=== PATIENT | male | born 1945 | race Asian ===

== ENCOUNTER 2018-11-03 00:26 | Inpatient (IN) | payer OTHER ==
[~2018-11-03] VITALS: Ht 157.5 cm; Wt 68.5 kg
[2018-11-03] MEDS ORDERED: ACETAMINOPHEN 325 MG TAB PO ONE (01:00)
[2018-11-03 02:36] LABS: Lactic Acid w/Reflex 2.2 mmol/L (0.4-2.0)
[2018-11-03 03:28] LABS: Basophils # (auto) 0.1 uL; Basophils % (auto) 0.5 % (0.0-2.0); Eosinophils # (auto) 0.2 uL; Eosinophils % (auto) 1.5 % (0.0-7.0); Hemoglobin 14.7 g/dL (13.5-17.5); Mean Corpuscular Hemoglobin 31.8 pg (28.0-32.0); Mean Corpuscular Hgb Conc. 33.5 g/dL (32.0-36.0); Mean Corpuscular Volume 94.9 fL (80.0-100.0); Monocytes # (auto) 0.9 uL; Monocytes % (auto) 6.5 % (0.0-12.0); Neutrophils # (auto) 10.1 uL; Neutrophils % (auto) 76.5 % (37.0-80.0); Platelet Count (auto) 296 10^3/uL (140-450); Red Blood Cells 4.64 10^6/uL (4.5-5.90); Red Cell Distribution Width 13.6 % (11.8-14.3); White Blood Cell 13.2 10^3/uL (4.4-10.8)
[2018-11-03] MEDS ORDERED: ALBUTEROL SULF 2.5 MG/0.5ML(0.5%) NEB SOLN NEB ONE (03:45)
[2018-11-03] MEDS ORDERED: IPRATROPIUM BROM 0.5 MG/2.5ML INH SOL NEB ONE (03:45)
[2018-11-03] MEDS ORDERED: SODIUM CHLORIDE 0.9% 1,000 ML IV ONE (03:45)
[2018-11-03 04:00] LABS: Albumin 3.2 g/dL (3.4-5.0); Anion Gap 14 (5-15); BUN/Creatinine Ratio 12.2; Blood Urea Nitrogen 14 mg/dL (7-18); Calcium 8.4 mg/dL (8.5-10.1); Carbon Dioxide 21 mmol/L (21-32); Chloride 105 mmol/L (98-107); GFR African American 80 mL/min; GFR Non-African American 66 mL/min; Glucose 110 mg/dL (74-106); Magnesium 2.2 mg/dL (1.6-2.6); Potassium 3.8 mmol/L (3.5-5.1); Sodium 140 mmol/L (136-145)
[2018-11-03 04:06] LABS: Alanine Aminotransferase 25 U/L (16-61); Alkaline Phosphatase 76 U/L (45-117); Aspartate Aminotransferase 21 U/L (15-37); Bilirubin, Total 0.3 mg/dL (0.2-1.0)
[2018-11-03] MEDS ORDERED: VANCOMYCIN PER PHARMACY 1,000 MG IV SCH (04:45)
[2018-11-03] MEDS ORDERED: SODIUM CHLORIDE 0.9% 2,000 ML IV ONE (04:45)
[2018-11-03 04:46] LABS: Urine Bacteria MANY /hpf (None Seen); Urine Blood TRACE /uL (Negative); Urine Mucus FEW (None Seen); Urine WBC 69 /hpf (0 - 3)
[2018-11-03] MEDS ORDERED: ONDANSETRON HCL 4 MG/2 ML VIAL IV PRN (06:00)
[2018-11-03] MEDS ORDERED: PIPERACILLIN-TAZOB 3.375GM 100 ML IV SCH (06:00)
[2018-11-03] MEDS ORDERED: ALBUTEROL SULF 2.5 MG/0.5ML(0.5%) NEB SOLN NEB PRN (06:00)
[2018-11-03] MEDS ORDERED: MORPHINE SULFATE 10 MG/ML INJ 1ML SDV IV PRN (06:00)
[2018-11-03] MEDS ORDERED: TEMAZEPAM 15 MG CAP PO PRN (06:00)
[2018-11-03] MEDS ORDERED: NITROGLYCERIN 0.4 MG SL TAB SL PRN (06:00)
[2018-11-03] MEDS: SODIUM CHLORIDE 0.9% 1,000 ML IV SCH ×2 (06:00→19:20)
[2018-11-03 06:42] LABS: Lactic Acid w/Reflex 3.8 mmol/L (0.4-2.0)
[2018-11-03 07:23] VITALS: BP 155/86
[2018-11-03] MEDS: ACETAMINOPHEN 325 MG TAB PO PRN ×2 (07:40→19:14)
[2018-11-03] MEDS ORDERED: SODIUM CHLORIDE 0.9% 500 ML IV ONE (07:45)
[2018-11-03] MEDS ORDERED: VANCOMYCIN PER PHARMACY 0 MG IV SCH (07:45)
[2018-11-03] MEDS ORDERED: VANCOMYCIN 1GM/250ML 250 ML IV SCH ×2 (10:00)
[2018-11-03] MEDS ORDERED: LEVOFLOXACIN 500MG 100 ML IV SCH (10:00)
[2018-11-03] MEDS: FAMOTIDINE 20 MG TAB PO SCH ×2 (10:17→21:24)
[2018-11-03] MEDS: ENOXAPARIN SOD 40 MG/0.4 ML SYRINGE SC SCH (10:17)
[2018-11-03] MEDS: METOPROLOL SUCCINATE XL 50 MG TAB PO SCH (10:17)
[2018-11-03 13:00] VITALS: BP 128/79
[2018-11-03] MEDS: PIPERACILLIN-TAZOB 3.375GM 100 ML IV SCH ×3 (13:12→23:56)
[2018-11-03 17:52] VITALS: BP 137/77
--- NOTE | 2018-11-03 19:10 | NUR ---
PRN MED NEB ASSESSMENT. PT DENIES SOB. NO DISTRESS NOTED AT THIS TIME. RA POX 93% HR 82 RR 18 . TX NOT GIVEN.
[2018-11-03 20:00] VITALS: BP 128/63
--- NOTE | 2018-11-03 20:00 | NUR ---
OPENING NOTE PATIENT WAS SLEEPING IN BED, W/ AT BEDSIDE. HE WOKE UP AND IS ALERT AND ORIENTED X 4. NO S/S OF DISTRESS. CALL LIGHT IS IN REACH AND SIDE RAILS UP X 2.
[2018-11-03] MEDS: ATORVASTATIN 20 MG TAB PO SCH (21:24)
[2018-11-03 22:00] VITALS: BP 128/63
[2018-11-04 05:00] VITALS: BP 140/88
[2018-11-04] MEDS: PIPERACILLIN-TAZOB 3.375GM 100 ML IV SCH (05:58)
[2018-11-04 06:14] LABS: Basophils # (auto) 0.1 uL; Basophils % (auto) 0.8 % (0.0-2.0); Eosinophils # (auto) 0.1 uL; Eosinophils % (auto) 0.8 % (0.0-7.0); Hemoglobin 13.8 g/dL (13.5-17.5); Lymphocytes # (auto) 1.6 uL; Lymphocytes % (auto) 12.7 % (10.0-50.0); Mean Corpuscular Hemoglobin 31.5 pg (28.0-32.0); Mean Corpuscular Hgb Conc. 33.6 g/dL (32.0-36.0); Mean Corpuscular Volume 93.9 fL (80.0-100.0); Monocytes # (auto) 1.1 uL; Monocytes % (auto) 8.5 % (0.0-12.0); Neutrophils # (auto) 9.8 uL; Neutrophils % (auto) 77.2 % (37.0-80.0); Nucleated Red Blood Cells % 0.1 %; Platelet Count (auto) 264 10^3/uL (140-450); Red Blood Cells 4.37 10^6/uL (4.5-5.90); Red Cell Distribution Width 13.6 % (11.8-14.3); White Blood Cell 12.7 10^3/uL (4.4-10.8)
[2018-11-04] MEDS: ACETAMINOPHEN 325 MG TAB PO PRN ×3 (06:17→18:56)
[2018-11-04 06:35] LABS: Potassium 3.3 mmol/L (3.5-5.1)
[2018-11-04 06:43] LABS: Albumin 2.7 g/dL (3.4-5.0); BUN/Creatinine Ratio 9.2; Bilirubin, Total 0.5 mg/dL (0.2-1.0); Calcium 7.7 mg/dL (8.5-10.1)
[2018-11-04 09:00] VITALS: BP 125/75
[2018-11-04] MEDS ORDERED: POTASSIUM CHL 20 Meq TABLET PO ONE (09:45)
[2018-11-04] MEDS: METOPROLOL SUCCINATE XL 50 MG TAB PO SCH (10:00)
[2018-11-04] MEDS: FAMOTIDINE 20 MG TAB PO SCH ×2 (10:00→23:23)
[2018-11-04] MEDS: SODIUM CHLORIDE 0.9% 1,000 ML IV SCH ×2 (10:05→23:22)
[2018-11-04] MEDS ORDERED: IOHEXOL 300 MG/ML 100ML BOTTLE IJ ONE (10:15)
[2018-11-04] MEDS: ENOXAPARIN SOD 40 MG/0.4 ML SYRINGE SC SCH (11:44)
[2018-11-04] MEDS: cefTRIAXone 1GM/50ML D5W 50 ML IV SCH (11:44)
[2018-11-04 13:00] VITALS: BP 134/81
[2018-11-04 17:54] VITALS: BP 123/79
--- NOTE | 2018-11-04 20:15 | NUR ---
RT NOTE: PT ASSESSED BY RT @ THIS TIME. PRN MED NEB TX NOT INDICATED. SP02 94% ON ROOM AIR, HR 102, CLEAR/DIMINISHED BS. NO SOB OR DISTRESS NOTED.
[2018-11-04 22:00] VITALS: BP 141/81
[2018-11-04] MEDS: ATORVASTATIN 20 MG TAB PO SCH (23:23)
[2018-11-05] MEDS: HYDROcodone-ACET 5/325MG TAB PO PRN ×2 (03:29→08:54)
--- NOTE | 2018-11-05 03:29 | NUR ---
IV positional and dc'd with cath tip intact. New Iv started, 22g right FA on first attempt and pt nishant well.
[2018-11-05 05:00] VITALS: BP 135/66
--- NOTE | 2018-11-05 07:30 | NUR ---
Morning note Report received and bedside handoff completed. Patient observed awake, alert, and without any S/S of distress noted. Patient oriented to this RN and POC. Patient verbalized understanding, and has call anton within reach if needing assistance. Potassium noted at 3.0 and will discuss with MD on rounds.
--- NOTE | 2018-11-05 08:33 | NUR ---
RT NOTE: PRN BREATHING TX. NOT INDICATED AT THIS TIME. PT. DENIES ANY SOB. PT. HR 93, RR 18, POX 94% R/A. BREATH SOUNDS ARE CLEAR IN THE UPPER LUNG CONWAY AND DIMINISHED IN THE BASES. PT. ADVISED TO NOTIFY RN IF BREATHING TX IS NEEDED.
[2018-11-05 09:35] VITALS: BP 136/69
[2018-11-05] MEDS: METOPROLOL SUCCINATE XL 50 MG TAB PO SCH (09:54)
[2018-11-05] MEDS: cefTRIAXone 1GM/50ML D5W 50 ML IV SCH (09:54)
[2018-11-05] MEDS: FAMOTIDINE 20 MG TAB PO SCH ×2 (09:54→22:41)
[2018-11-05] MEDS: ENOXAPARIN SOD 40 MG/0.4 ML SYRINGE SC SCH (09:55)
[2018-11-05] MEDS: SODIUM CHLORIDE 0.9% 1,000 ML IV SCH (11:20)
[2018-11-05] MEDS ORDERED: POTASSIUM CHL 20 Meq TABLET PO ONE (12:00)
[2018-11-05] MEDS ORDERED: TAMSULOSIN HYDROCHLORIDE 0.4 MG CAP PO ONE ×2 (12:00→12:15)
--- NOTE | 2018-11-05 12:15 | NUR ---
Rounded Dr. Yates at bedside discussed with patient and about POC regarding adding flomax and potassium today then discharge tomorrow. They both verbalized understanding.
[2018-11-05 13:50] VITALS: BP 137/69
[2018-11-05] MEDS: ACETAMINOPHEN 325 MG TAB PO PRN (16:57)
[2018-11-05 17:16] VITALS: BP 143/76
--- NOTE | 2018-11-05 20:10 | NUR ---
Respiratory note: PT ASSESSED FOR PRN MED NEB TX. HR 93, RR 18, SPO2 94% ON R/A, BS CLEAR/DIMINISHED. NO SIGNS OF ANY RESPIRATORY DISTRESS NOTED. ADVISED PT TO PLEASE CALL IF NEEDED.
[2018-11-05 22:09] VITALS: BP 130/64
[2018-11-05] MEDS: ATORVASTATIN 20 MG TAB PO SCH (22:41)
[2018-11-06 04:48] VITALS: BP 147/78
[2018-11-06 06:52] LABS: Basophils # (auto) 0 uL; Basophils % (auto) 0.5 % (0.0-2.0); Eosinophils # (auto) 0.2 uL; Eosinophils % (auto) 2.3 % (0.0-7.0); Hematocrit 38.6 % (41.0-53.0); Hemoglobin 13.2 g/dL (13.5-17.5); Lymphocytes % (auto) 19.6 % (10.0-50.0); Mean Corpuscular Hemoglobin 31.8 pg (28.0-32.0); Mean Corpuscular Hgb Conc. 34.3 g/dL (32.0-36.0); Mean Corpuscular Volume 92.9 fL (80.0-100.0); Monocytes # (auto) 0.9 uL; Monocytes % (auto) 9.2 % (0.0-12.0); Neutrophils # (auto) 6.8 uL; Neutrophils % (auto) 68.4 % (37.0-80.0); Nucleated Red Blood Cells % 0.1 %; Platelet Count (auto) 289 10^3/uL (140-450); Red Blood Cells 4.16 10^6/uL (4.5-5.90); Red Cell Distribution Width 13.4 % (11.8-14.3)
[2018-11-06 07:03] LABS: Albumin 2.7 g/dL (3.4-5.0); Calcium 7.8 mg/dL (8.5-10.1); Potassium 3.5 mmol/L (3.5-5.1)
[2018-11-06 07:06] LABS: BUN/Creatinine Ratio 15.5; Bilirubin, Total 0.3 mg/dL (0.2-1.0); Total Protein 6.9 g/dL (6.4-8.2)
[2018-11-06 07:14] VITALS: BP 147/78
[2018-11-06 08:00] VITALS: BP 132/95
[2018-11-06 09:00] VITALS: BP 132/95
[2018-11-06] MEDS: cefTRIAXone 1GM/50ML D5W 50 ML IV SCH (09:00)
--- NOTE | 2018-11-06 09:48 | NUR ---
PT ASSESSED FOR PRN HHN TX. PT IS ON ROOM AIR, SPO2 96%, HR 80, RR 16. NO S/S OF RESPIRATORY DISTRESS. WILL CONTINUE TO MONITOR.
[2018-11-06] MEDS: METOPROLOL SUCCINATE XL 50 MG TAB PO SCH (11:16)
[2018-11-06] MEDS: FAMOTIDINE 20 MG TAB PO SCH ×2 (11:16→21:18)
[2018-11-06] MEDS: ENOXAPARIN SOD 40 MG/0.4 ML SYRINGE SC SCH (11:17)
--- NOTE | 2018-11-06 15:01 | NUR ---
Nutrition Assessment Notes please see attached link fro complete assessment Est. Needs based on BW (68 kg): 2741-1155 kcal (23-25 kcal/kgBW), 68-74 gms pro (1.0-1.1 gms/kgBW). Will continue to monitor pertinent labs and reassess nutrient need prn Addendum: 11/06/18 at [address] Amended: Links added.
[2018-11-06 17:00] VITALS: BP 151/85
[2018-11-06] MEDS ORDERED: TAMSULOSIN HYDROCHLORIDE 0.4 MG CAP PO SCH ×2 (18:00)
--- NOTE | 2018-11-06 19:30 | NUR ---
Opening Shift Note Assumed care of patient, awake and alert. No S/S of distress/SOB or pain. Instructed on POC and to call for assist PRN, will continue to monitor for changes. Pt has difficulty speaking Malay, but he can express himself and understand the nursing team. Bed low with HOB in semi-Padilla's position. Nurse call light is at his side.
[2018-11-06] MEDS: ATORVASTATIN 20 MG TAB PO SCH (21:19)
[2018-11-06 22:00] VITALS: BP 136/79
--- NOTE | 2018-11-07 03:02 | NUR ---
PT SEEN SLEEPING ON RA, SPO2 93%, BS CLEAR AND DIMINISHED. NO PRN NEB TX INDICATED AT THIS TIME.
[2018-11-07] MEDS: HYDROcodone-ACET 5/325MG TAB PO PRN (04:47)
--- NOTE | 2018-11-07 04:50 | NUR ---
Pt c/o JOSHI of 30% but states nurse 2 days ago, "gave me something stronger and it worked." So [place] 5/325mg i po given.
[2018-11-07 05:00] VITALS: BP 139/84
--- NOTE | 2018-11-07 07:35 | NUR ---
RT NOTE: WENT TO PTS ROOM TO ASSESS FOR PRN BREATHING TX. NO TX NEEDED AT THIS TIME. PT IS ON RA SPO2 93%, HR 75, RR 16 BREATH SOUNDS CLEAR. WILL CONTINUE TO MONITOR PT.
[2018-11-07 08:00] VITALS: BP 124/71
[2018-11-07] MEDS: FAMOTIDINE 20 MG TAB PO SCH (09:23)
[2018-11-07] MEDS: cefTRIAXone 1GM/50ML D5W 50 ML IV SCH (09:23)
[2018-11-07 09:24] VITALS: BP 124/71
[2018-11-07] MEDS: ENOXAPARIN SOD 40 MG/0.4 ML SYRINGE SC SCH (09:24)
[2018-11-07] MEDS: METOPROLOL SUCCINATE XL 50 MG TAB PO SCH (09:24)
[2018-11-07] MEDS ORDERED: TAM04C PO (09:39)
[2018-11-07] MEDS ORDERED: CIPR-173 PO (09:39)
[2018-11-07] MEDS ORDERED: ACETAMINOPHEN 325 MG TAB PO PRN (09:45)
[2018-11-07 12:36] VITALS: BP 143/75
[2018-11-07 13:11] VITALS: BP 143/75
--- NOTE | 2018-11-07 14:08 | NUR ---
DISCHARGE Discharge instructions given as ordered. Encouraged to follow up with PMD as instructed. All questions and concerns addressed. Patient verbalized understanding. Medication reconciliation form completed and copy given to patient. No home medications held in Pharmacy to return to patient. IV removed with catheter intact, pressure dressing applied, no harmon catheter to remove. No telemetry unit returned to [facility]. Patient taken to vehicle via wheelchair with all personal belongings, accompanied by staff and family member. No distress noted at time of departure.
== END 2018-11-07 14:11 | disposition home or self-care (01) | DRG 872 ==
LOC: ER 00:29 → TELE 05:55 → TELE-EAST 11:36 → EAST 11-04 11:46
PROVIDERS: ADMIT Nurse Practitioner; ATTEND Internal Medicine
DX: A41.9 Sepsis, unspecified organism (principal); E44.1 Mild protein-calorie malnutrition; J98.11 Atelectasis; N12 Tubulo-interstitial nephritis, not specified as acute or chronic; I10 Essential (primary) hypertension; B96.20 Unspecified Escherichia coli [E. coli] as the cause of diseases classified elsewhere; Z68.27 Body mass index [BMI] 27.0-27.9, adult; E78.5 Hyperlipidemia, unspecified; N40.0 Benign prostatic hyperplasia without lower urinary tract symptoms; Z16.12 Extended spectrum beta lactamase (ESBL) resistance
CPT/HCPCS: 36415; 36600; 71045; 74177; 76775; 80053; 81001; 82550; 82805; 83605; 83735; 83880; 84132; 84154; 84484; 85025; 85379; 85384; 86850; 86900; 86901; 87040; 87086; 87088; 87186; 87804; 93005; 94640; 96361; 96365; 96367; A6257; G0378; J0696; J2543